=== PATIENT | male | born 1995 | race Caucasian/White ===

== ENCOUNTER → 2022-09-02 | Outpatient (REF) | payer OTHER ==
[2022-09-02 09:50] LABS: SEMEN APPEARANCE OPAQUE (OPAQUE); SEMEN VISCOSITY LIQUID (LIQUID); SEMEN VOLUME 2.7 ml (2.0-5.0); SPERM CONCENTRATION 128.7 M/ml (>=15.0); WBC CONCENTRATION <=1 M/ml (<=1 M/ml)
== END ==
LOC: M LAB REF 09:20
PROVIDERS: ATTEND Obstetrics & Gynecology Obstetrics
DX: Z98.52 Vasectomy status (principal)